=== PATIENT | female | born 1945 | race African-American/Black ===

== ENCOUNTER 2024-06-01 12:28 | Outpatient (CLI) | payer MEDICARE, MEDICAID, SELFPAY | END 2024-06-01 12:29 | disposition home or self-care (01) | LOC: ANHAUDIO 12:29 | PROVIDERS: PCP Otolaryngology; Visit Provider Otolaryngology | DX: H90.3 Sensorineural hearing loss, bilateral (principal) | CPT/HCPCS: 92557; 92567 ==